=== PATIENT | male | born 1980 | race Caucasian/White ===

== ENCOUNTER 2018-01-15 08:02 | Emergency (ER) | payer OTHER ==
[~2018-01-15] VITALS: Ht 175.3 cm; Wt 83.0 kg
[2018-01-15 08:09] VITALS: TEMP 36.6; O2SAT 99; Ht 175.3 cm; Wt 83.0 kg
[2018-01-15] MEDS ORDERED: ALUMINUM/MAGNESIUM SUSP 30 ML UDC PO STA (08:16)
[2018-01-15] MEDS ORDERED: LIDOCAINE HCL 2% VISC SOLN 20 ML UDC PO STA (08:16)
--- NOTE | 2018-01-15 08:31 | DIAGNOSTIC IMAGING REPORT ---
CHEST ONE VIEW PORTABLE CLINICAL HISTORY: CHEST PAIN pain COMPARISON STUDY: No previous studies for comparison. FINDINGS: The bones soft tissues and hemidiaphragms are normal. The cardiomediastinal silhouette is normal. The lungs are clear. The pulmonary vasculature is normal. IMPRESSION: Negative chest. The above report was generated using voice recognition software. It may contain grammatical, syntax or spelling errors. Electronically signed by: Tolu Rose M.D. 01/15/2018 8:29 AM Dictated Date/Time: 01/15/2018 8:29 AM
[2018-01-15 08:33] LABS: HEMATOCRIT 43.3 % (42-52); HEMOGLOBIN 15.1 g/dL (14.0-18.0); MEAN CELL VOLUME 84.9 fL (80-100); MEAN CORPUSCULAR HEMOGLOBIN 29.6 pg (25-34); MEAN CORPUSCULAR HGB CONC 34.9 g/dl (32-36); MEAN PLATELET VOLUME 9.5 fL (7.4-10.4); PLATELET COUNT 255 K/uL (130-400); RED CELL DISTRIBUTION WIDTH CV 12.4 % (11.5-14.5); RED CELL DISTRIBUTION WIDTH SD 37.8 fL (36.4-46.3); WHITE BLOOD COUNT 7.39 K/uL (4.8-10.8)
[2018-01-15 08:40] LABS: ALBUMIN 4.1 gm/dl (3.4-5.0); ALT/SGPT 38 U/L (12-78); AST/SGOT 22 U/L (15-37); BLOOD UREA NITROGEN 13 mg/dl (7-18); CALCIUM 9.1 mg/dl (8.5-10.1); CARBON DIOXIDE 30 mmol/L (21-32); CREATININE 1.02 mg/dl (0.60-1.40); GLUCOSE 104 mg/dl (70-99); POTASSIUM 3.6 mmol/L (3.5-5.1); SODIUM 137 mmol/L (136-145)
--- NOTE | 2018-01-15 08:45 | EMERGENCY ROOM VISIT NOTE ---
History Report prepared by Yoel: Nannette Farmer Under the Supervision of: Dr. Luis Roche M.D. First contact with patient: 08:09 Chief Complaint: CHEST PAIN Stated Complaint: CHEST PAIN History of Present Illness The patient is a 37 year old male who presents to the Emergency Room with complaints of constant chest pain starting 5 days ago. The patient states that he has felt like he has had an irregular heartbeat. He states that he has had this before and talked to his PCP about it. He states that his PCP put him on a heart monitor. He states that he noticed something recorded on it, but never told him what it was and was not concerned about it. The patient reports that he thought at first it was heart burn. He states that the chest pain is a burning feeling and rates his pain as a 4/10 in severity. He reports that he feels his heart beating irregularly more when he exerts himself, but the chest pain does not worsen with it. The patient notes that the other day he was walking out of work and became dizzy. He states that he had another episode of this last night. He reports that with each of these episodes he became nauseous. He reports that the episode of dizziness he had last night had a feeling of numbness in both his hands. He states that he is unsure if it is because he has been thinking about the chest pain so much. The patient complains of having a bloody nose last night for no reason. The patient denies shortness of breath, diaphoresis, the pain radiating, taking any antacids, recent travel, ever having a stress test, a history of a blood clot, and a family history of blood clots. The patient notes that his father started having heart problems around age 55. Source of History: patient Onset: 5 days ago Position: chest Symptom Intensity: 4/10 Quality: burning Timing: constant Associated Symptoms: + nausea, + numbness, No diaphoresis, No SOB Note: The patient complains of feeling his heart beat irregularly, episodes of dizziness, and a random bloody nose. The patient denies the chest pain radiating anywhere else. Review of Systems See HPI for pertinent positives & negatives. A total of 10 systems reviewed and were otherwise negative. Past Medical & Surgical Medical Problems: (1) Palpitations Family History Heart attack Social History Smoking Status: Never Smoker Marital Status: Housing Status: lives with family Occupation Status: employed Current/Historical Medications No Active Prescriptions or Reported Meds Allergies Coded Allergies: No Known Allergies (Unverified , 01/15/18) Physical Exam Vital Signs Date Time Temp Pulse Resp B/P (MAP) Pulse Ox O2 Delivery O2 Flow Rate FiO2 01/15/18 09:52 60 15 117/81 96 01/15/18 08:43 59 16 137/83 97 Room Air 01/15/18 08:15 70 01/15/18 08:09 99 Room Air 01/15/18 08:09 36.6 63 18 156/99 99 Room Air 01/15/18 08:09 99 Room Air Physical Exam GENERAL: Patient is in no acute distress. HEENT: No acute trauma, normocephalic atraumatic, mucous membranes moist, no nasal congestion, no scleral icterus. NECK: No stridor, no adenopathy, no meningismus, trachea is midline. LUNGS: Clear to auscultation bilaterally, no wheeze, no rhonchi, breath sounds equal. HEART: Nu murmurs. Occasional extra beats heart. Regular rate. ABDOMEN: Soft, nontender, bowel sounds positive, no hernias, no peritonitis. EXTREMITIES: No cyanosis or edema, full range of motion of all the joints without pain or difficulty, no signs for acute trauma. NEUROLOGIC: Oriented x 3, no acute motor or sensory deficits, no focal weakness. SKIN: No rash, no jaundice, no diaphoresis. Medical Decision & Procedures ER Provider Diagnostic Interpretation: Radiology results as stated below per my review and radiologist interpretation: CHEST ONE VIEW PORTABLE CLINICAL HISTORY: CHEST PAIN pain COMPARISON STUDY: No previous studies for comparison. FINDINGS: The bones soft tissues and hemidiaphragms are normal. The cardiomediastinal silhouette is normal. The lungs are clear. The pulmonary vasculature is normal. IMPRESSION: Negative chest. The above report was generated using voice recognition software. It may contain grammatical, syntax or spelling errors. Electronically signed by: Tolu Rose M.D. 01/15/2018 8:29 AM Dictated Date/Time: 01/15/2018 8:29 AM Laboratory Results 01/15/18 08:15 01/15/18 08:15 Test 01/15/18 08:15 01/15/18 08:32 Red Blood Count 5.10 M/uL (4.7-6.1) Mean Corpuscular Volume 84.9 fL (80-100) Mean Corpuscular Hemoglobin 29.6 pg (25-34) Mean Corpuscular Hemoglobin Concent 34.9 g/dl (32-36) RDW Standard Deviation 37.8 fL (36.4-46.3) RDW Coefficient of Variation 12.4 % (11.5-14.5) Mean Platelet Volume 9.5 fL (7.4-10.4) Anion Gap 4.0 mmol/L (3-11) Est Creatinine Clear Calc Drug Dose 101.1 ml/min Estimated GFR () 109.9 Estimated GFR (Non- 94.8 BUN/Creatinine Ratio 12.7 (10-20) Calcium Level 9.1 mg/dl (8.5-10.1) Magnesium Level 1.9 mg/dl (1.8-2.4) Total Bilirubin 0.3 mg/dl (0.2-1) Aspartate Amino Transf (AST/SGOT) 22 U/L (15-37) Alanine Aminotransferase (ALT/SGPT) 38 U/L (12-78) Alkaline Phosphatase 71 U/L (45-117) Troponin I < 0.015 ng/ml (0-0.045) Total Protein 8.1 gm/dl (6.4-8.2) Albumin 4.1 gm/dl (3.4-5.0) Globulin 4.0 gm/dl (2.5-4.0) Albumin/Globulin Ratio 1.0 (0.9-2) Thyroid Stimulating Hormone (TSH) 4.260 uIu/ml (0.300-4.500) Bedside D-Dimer 162 ng/mlFEU (0-450) Laboratory results reviewed by me. Medications Administered Medications (Trade) Dose Ordered Sig/Imani Route Start Time Stop Time Status Last Admin Dose Admin Lidocaine HCl (Viscous Lidocaine 2% Soln) 10 ml NOW STAT PO 01/15/18 08:16 01/15/18 08:21 DC 01/15/18 08:40 10 ML Al Hydroxide/Mg Hydroxide (Maalox Susp) 30 ml NOW STAT PO 01/15/18 08:16 01/15/18 08:21 DC 01/15/18 08:40 30 ML ECG Per My Interpretation Indication: chest pain Rate (beats per minute): 59 Rhythm: sinus bradycardia Findings: no ectopy, other (no ST elevations, no PVCs) ED Course 0810: The patient was evaluated in room B5. A complete history and physical exam was performed. 0816: Ordered Maalox Susp 30 ml PO, Lidocaine HCl 10 ml PO. 0932: I reevaluated the patient and he is doing okay. He reports that the GI Cocktail offered no releif and he believes this is all from stress. Discussed results and discharge instructions: He verbalized understanding and agreement. The patient is ready for discharge. Medical Decision Differential diagnoses include palpitations, PACs or PVCs, a-fib or a-flutter, cardiomegaly, PE, MN, aortic dissection, reflux, gastritis. There is no leukocytosis or concerning anemia. No significant electrolyte abnormality, kidney failure or hepatitis. The patient appears to be in a euthyroid state. EKG shows a sinus bradycardia no acute ischemia. Cardiac enzyme testing 1 is not consistent with acute cardiac injury. Chest film does not show mediastinal widening, pneumonia or pneumothorax. The patient was given a GI cocktail, this really has not changed his pain. The patient presents with chest pain. His cardiac workup is benign. He feels this all may be anxiety/stress related. I do believe he can be discharged with outpatient follow-up. If worsening, he can return. Some Zantac for a few days was suggested. If he has any exertional symptoms he will need reassessment. A Holter monitor was thought a reasonable suggestion through the family doctor's office. Medication Reconcilliation Current Medication List: was personally reviewed by me Blood Pressure Screening Patient's blood pressure: Elevated blood pressure Blood pressure disposition: Elevated BP felt to be situational Impression Primary Impression: Precordial chest pain Additional Impression: Palpitations Scribe Attestation The scribe's documentation has been prepared under my direction and personally reviewed by me in its entirety. I confirm that the note above accurately reflects all work, treatment, procedures, and medical decision making performed by me. Departure Information Dispostion Home / Self-Care Prescriptions No Active Prescriptions or Reported Meds Forms Call Back Authorization, HOME CARE DOCUMENTATION FORM, IMPORTANT VISIT INFORMATION Patient Instructions My [facility] Additional Instructions can try some zantac otc for a week or two talk with your [facility] md about wearing a holter monitor return for worsening symptoms heart and lung testing today was all ok Problem Qualifiers
[2018-01-15 08:51] LABS: ALKALINE PHOSPHATASE 71 U/L (45-117); TOTAL PROTEIN 8.1 gm/dl (6.4-8.2)
[2018-01-15 09:52] VITALS: BP 117/81; PULSE 60; O2SAT 96
== END 2018-01-15 09:54 | disposition home or self-care (01) ==
LOC: C.EDB 08:04
DX: R07.2 Precordial pain (principal); R00.2 Palpitations